=== PATIENT | female | born 1955 | race Caucasian/White ===

== ENCOUNTER 2023-03-02 14:01 | Emergency (ER) | payer MEDICARE, BC ==
[~2023-03-02] VITALS: Ht 165.1 cm; Wt 65.9 kg
[~2023-03-02 14:01] MED LIST: ATOR10TA PO; FURO20 PO; SPIR-37 PO
[2023-03-02 14:20] VITALS: TEMP 98
[2023-03-02 14:26] VITALS: BP 116/67; PULSE 92; RESP 16
[2023-03-02 15:26] LABS: BASOPHILS % (AUTO) 0.5 % (0.0-2.0); EOSINOPHILS % (AUTO) 0.3 % (1.0-6.0); HEMATOCRIT 37.6 % (36-46); HEMOGLOBIN 12.2 g/dL (12.0-16.0); LYMPHOCYTES % (AUTO) 14.9 % (22.0-44.0); MEAN CORPUSCULAR HEMOGLOBIN 31.8 pg (26.0-34.0); MEAN CORPUSCULAR HGB CONC 32.5 G/dL (31.0-37.0); MEAN CORPUSCULAR VOLUME 98 fL (80-100); MONOCYTES # (AUTO) 0.4 K/uL (0.1-1.0); MONOCYTES % (AUTO) 6.2 % (2.0-9.0); NEUTROPHILS # (AUTO) 5.1 K/uL (1.8-7.7); NEUTROPHILS % (AUTO) 78.1 % (40.0-70.0); PLATELET COUNT (AUTO) 231 K/uL (150-450); RED BLOOD CELL COUNT(AUTO) 3.84 MIL/uL (4.00-5.20); WHITE BLOOD COUNT (AUTO) 6.6 K/uL (4.5-11.0)
[2023-03-02 15:42] LABS: ALANINE AMINOTRANSFERASE 44 U/L (12-78); ALBUMIN 3.5 g/dL (3.4-5.0); ALKALINE PHOSPHATASE 60 U/L (46-116); ASPARTATE AMINOTRANSFERASE 33 U/L (15-37); CALCIUM, TOTAL 9.6 mg/dL (8.8-10.5); CARBON DIOXIDE 28 mmol/L (22-29); CREATININE 1.26 mg/dL (0.60-1.30); GLOMERULAR FILTR. RATE CALC 42 mL/min (>60); GLUCOSE,RANDOM 102 mg/dL (70-110); TOTAL PROTEIN, SERUM 6.7 g/dL (6.4-8.2); UREA NITROGEN, BLOOD 38 mg/dL (7-18)
[2023-03-02 15:43] LABS: ALCOHOL, BLOOD (SERUM) < 3 mg/dL (0-10)
[2023-03-02 15:48] LABS: ANION GAP 12 mmol/L (8-16); CHLORIDE 105 mmol/L (98-107); POTASSIUM 3.8 mmol/L (3.5-5.1); SODIUM SERUM 143 mmol/L (136-145)
== END 2023-03-02 18:06 | disposition home or self-care (01) ==
LOC: EMS 14:12
DX: F20.9 Schizophrenia, unspecified (principal); Z88.1 Allergy status to other antibiotic agents; Z91.018 Allergy to other foods; Z88.8 Allergy status to other drugs, medicaments and biological substances
CPT/HCPCS: 99284; 71045; 80053; 85025; G0480

== ENCOUNTER 2023-03-02 21:24 | Emergency (ER) | payer MEDICARE, BC ==
[~2023-03-02] VITALS: Ht 165.1 cm; Wt 65.0 kg
[2023-03-02 21:30] VITALS: BP 115/68; PULSE 90; RESP 18; TEMP 98
== END 2023-03-03 02:59 | disposition home or self-care (01) ==
LOC: EMS 21:28
DX: Z13.9 Encounter for screening, unspecified (principal); F20.9 Schizophrenia, unspecified; Z88.1 Allergy status to other antibiotic agents; Z88.8 Allergy status to other drugs, medicaments and biological substances
CPT/HCPCS: 99283; Z7502

== ENCOUNTER 2023-03-03 18:03 | Inpatient (IN) | payer BC, MEDICARE ==
[~2023-03-03] VITALS: Ht 172.7 cm; Wt 68.9 kg
[2023-03-03 18:59] LABS: BASOPHILS % (AUTO) 0.6 % (0.0-2.0); EOSINOPHILS % (AUTO) 0.3 % (1.0-6.0); HEMATOCRIT 37.3 % (36-46); HEMOGLOBIN 12.2 g/dL (12.0-16.0); LYMPHOCYTES # (AUTO) 0.8 K/uL (1.0-4.8); LYMPHOCYTES % (AUTO) 11.4 % (22.0-44.0); MEAN CORPUSCULAR HGB CONC 32.8 G/dL (31.0-37.0); MEAN CORPUSCULAR VOLUME 98 fL (80-100); MONOCYTES # (AUTO) 0.4 K/uL (0.1-1.0); NEUTROPHILS # (AUTO) 5.6 K/uL (1.8-7.7); NEUTROPHILS % (AUTO) 81.7 % (40.0-70.0); PLATELET COUNT (AUTO) 250 K/uL (150-450); RED BLOOD CELL COUNT(AUTO) 3.81 MIL/uL (4.00-5.20); RED CELL DISTRIBUTION WIDTH 16.3 % (11.5-14.5); WHITE BLOOD COUNT (AUTO) 6.8 K/uL (4.5-11.0)
[2023-03-03 19:10] LABS: ANION GAP 12 mmol/L (8-16); CARBON DIOXIDE 27 mmol/L (22-29); CHLORIDE 104 mmol/L (98-107); CREATININE 1.49 mg/dL (0.60-1.30); GLOMERULAR FILTR. RATE CALC 35 mL/min (>60); GLUCOSE,RANDOM 148 mg/dL (70-110); POTASSIUM 3.4 mmol/L (3.5-5.1); SODIUM SERUM 143 mmol/L (136-145); UREA NITROGEN, BLOOD 37 mg/dL (7-18)
[2023-03-03 19:16] LABS: ALANINE AMINOTRANSFERASE 46 U/L (12-78); ALBUMIN 3.6 g/dL (3.4-5.0); ALKALINE PHOSPHATASE 60 U/L (46-116); ASPARTATE AMINOTRANSFERASE 29 U/L (15-37); TOTAL PROTEIN, SERUM 6.8 g/dL (6.4-8.2)
[2023-03-03 19:19] LABS: ALCOHOL, BLOOD (SERUM) < 3 mg/dL (0-10)
[2023-03-03 19:43] LABS: COVID AG,FIA SOURCE NASAL SWAB
[2023-03-03 19:48] LABS: SARS-COV2 (COVID) ANTIGEN,FIA Negative (Negative)
[2023-03-03] MEDS ORDERED: HALOPERIDOL 5 MG TABLET PO PRN (21:45)
[2023-03-03] MEDS ORDERED: ZOLPIDEM TARTRATE 10 MG TABLET PO PRN (21:45)
[2023-03-03] MEDS ORDERED: LORazepam 2 MG TABLET PO PRN (21:45)
[2023-03-04] MEDS ORDERED: FUROSEMIDE 20 MG TABLET PO ONE (07:30)
[2023-03-04] MEDS ORDERED: SPIRONOLACTONE 25 MG TABLET PO ONE (07:30)
[2023-03-04 07:49] LABS: BASOPHILS % (AUTO) 0.5 % (0.0-2.0); EOSINOPHILS % (AUTO) 0.7 % (1.0-6.0); HEMATOCRIT 36.3 % (36-46); LYMPHOCYTES % (AUTO) 18.8 % (22.0-44.0); MEAN CORPUSCULAR HEMOGLOBIN 32.1 pg (26.0-34.0); MEAN CORPUSCULAR VOLUME 97 fL (80-100); MONOCYTES # (AUTO) 0.3 K/uL (0.1-1.0); NEUTROPHILS # (AUTO) 3.8 K/uL (1.8-7.7); PLATELET COUNT (AUTO) 225 K/uL (150-450); RED BLOOD CELL COUNT(AUTO) 3.72 MIL/uL (4.00-5.20); RED CELL DISTRIBUTION WIDTH 16.4 % (11.5-14.5); WHITE BLOOD COUNT (AUTO) 5.2 K/uL (4.5-11.0)
[2023-03-04 07:59] LABS: CALCIUM, TOTAL 9.5 mg/dL (8.8-10.5); CREATININE 1.22 mg/dL (0.60-1.30); POTASSIUM 3.7 mmol/L (3.5-5.1)
[2023-03-04 08:09] LABS: TROPONIN I-HIGH SENSITIVITY 54 ng/L (<51)
[2023-03-04 10:40] LABS: TROPONIN I-HIGH SENSITIVITY 39 ng/L (<51)
[2023-03-04 11:03] LABS: ALCOHOL, URINE DRUG SCREEN NEGATIVE (NEGATIVE); AMPHET/METH SCREEN,URINE NEGATIVE (NEGATIVE); BARBITURATE SCREEN, URINE NEGATIVE (NEGATIVE); BENZODIAZEPINES SCREEN,URINE NEGATIVE (NEGATIVE); CANNABINOID SCREEN,URINE NEGATIVE (NEGATIVE); COCAINE SCREEN,URINE NEGATIVE (NEGATIVE); METHADONE SCREEN, URINE NEGATIVE (NEGATIVE); OPIATE SCREEN,URINE NEGATIVE (NEGATIVE); PHENCYCLIDINE SCREEN,URINE NEGATIVE (NEGATIVE)
[2023-03-04 11:05] LABS: APPEARANCE,URINE CLEAR (CLEAR); BILIRUBIN,URINE NEGATIVE (NEGATIVE); COLOR,URINE YELLOW (YELLOW); GLUCOSE, URINE (UA) NEGATIVE (NEGATIVE); KETONES,URINE NEGATIVE (NEGATIVE); LEUKOCYTE ESTERASE ,URINE NEGATIVE (NEGATIVE); NITRATE,URINE NEGATIVE (NEGATIVE); OCCULT BLOOD,URINE NEGATIVE (NEGATIVE); PH,URINE 5.5 (5.0-8.0); PH,URINE DRUG SCREEN 5.5 (5.0-8.0); PROTEIN,URINE 30-70 mg/dL (NEGATIVE); SPECIFIC GRAVITIY, URINE 1.024 (1.003-1.030)
[2023-03-04] MEDS ORDERED: ZOLPIDEM TARTRATE 10 MG TABLET PO PRN (11:15)
[2023-03-04] MEDS ORDERED: LORazepam 2 MG TABLET PO PRN (11:15)
[2023-03-04] MEDS ORDERED: HALOPERIDOL 5 MG TABLET PO PRN (11:15)
[2023-03-04 17:51] VITALS: BP 135/91; PULSE 91; RESP 18; TEMP 97; O2SAT 97
[2023-03-04 18:13] VITALS: BP 135/91; PULSE 91; RESP 18; TEMP 97
[2023-03-04 22:34] VITALS: BP 126/77; PULSE 84; RESP 18; TEMP 97.3
[2023-03-05] MEDS ORDERED: BENZOCAINE/MENTHOL LOZENGE PO PRN (05:30)
[2023-03-05] MEDS ORDERED: ALBUTEROL SULFATE HFA 90 MCG/PUFF 8 GM INHALER IH PRN (05:30)
[2023-03-05] MEDS ORDERED: IBUPROFEN 600 MG TABLET PO PRN (05:30)
[2023-03-05] MEDS ORDERED: PETROLATUM,WHITE 28 GM JELLY TP PRN (05:30)
[2023-03-05] MEDS ORDERED: CloNIDine HCL 0.1 MG TABLET PO PRN (05:30)
[2023-03-05] MEDS ORDERED: MAGNESIUM HYDROXIDE SUSPENSION 30 ML UDCUP PO PRN (05:30)
[2023-03-05] MEDS ORDERED: BACITRACIN 28 GM OINTMENT TP PRN (05:30)
[2023-03-05] MEDS ORDERED: DOCUSATE SODIUM 100 MG CAPSULE PO PRN (05:30)
[2023-03-05] MEDS ORDERED: OMEPRAZOLE 20 MG CAPSULE PO PRN (05:30)
[2023-03-05] MEDS ORDERED: ACETAMINOPHEN 325 MG TABLET PO PRN (05:30)
[2023-03-05] MEDS ORDERED: ONDANSETRON HCL 4 MG TABLET PO PRN (05:30)
[2023-03-05] MEDS ORDERED: MAG HYDROX/ALUMINUM HYD/SIMETH ES 30 ML SUSPENSION UDCUP PO PRN (05:30)
[2023-03-05] MEDS ORDERED: LOPERAMIDE HCL 2 MG CAPSULE PO PRN (05:30)
[2023-03-05] MEDS: SPIRONOLACTONE 25 MG TABLET PO SCH ×2 (08:27→17:00)
[2023-03-05] MEDS: FUROSEMIDE 40 MG TABLET PO SCH (08:27)
[2023-03-05] MEDS: METOPROLOL TARTRATE 25 MG TABLET PO SCH ×2 (08:27→17:00)
[2023-03-05] MEDS: ASPIRIN 81 MG DR TABLET PO SCH (08:28)
[2023-03-05 09:00] VITALS: BP 93/61; PULSE 92; RESP 18; TEMP 96.8
[2023-03-05 12:00] VITALS: BP 103/56; PULSE 116; RESP 18
[2023-03-05] MEDS: MEMANTINE HCL 5 MG TABLET PO SCH (17:00)
[2023-03-05] MEDS: OLANZapine 5 MG TABLET PO SCH (21:00)
[2023-03-05] MEDS: ATORVASTATIN CALCIUM 20 MG TABLET PO SCH (21:00)
[2023-03-05 22:34] VITALS: RESP 18; TEMP 96.8
[2023-03-06 08:38] LABS: BASOPHILS % (AUTO) 0.3 % (0.0-2.0); EOSINOPHILS % (AUTO) 0.2 % (1.0-6.0); HEMATOCRIT 36.5 % (36-46); LYMPHOCYTES % (AUTO) 13.1 % (22.0-44.0); MEAN CORPUSCULAR HEMOGLOBIN 32.1 pg (26.0-34.0); MEAN CORPUSCULAR HGB CONC 32.9 G/dL (31.0-37.0); MEAN CORPUSCULAR VOLUME 98 fL (80-100); MONOCYTES # (AUTO) 0.6 K/uL (0.1-1.0); MONOCYTES % (AUTO) 7.1 % (2.0-9.0); NEUTROPHILS # (AUTO) 6.3 K/uL (1.8-7.7); NEUTROPHILS % (AUTO) 79.3 % (40.0-70.0); PLATELET COUNT (AUTO) 199 K/uL (150-450); RED BLOOD CELL COUNT(AUTO) 3.75 MIL/uL (4.00-5.20); RED CELL DISTRIBUTION WIDTH 16.2 % (11.5-14.5); WHITE BLOOD COUNT (AUTO) 7.9 K/uL (4.5-11.0)
[2023-03-06 08:49] LABS: HEMOGLOBIN A1C 5.9 % (3.8-5.6)
[2023-03-06] MEDS: MEMANTINE HCL 5 MG TABLET PO SCH ×2 (09:00→18:16)
[2023-03-06] MEDS: ASPIRIN 81 MG DR TABLET PO SCH (09:00)
[2023-03-06] MEDS: METOPROLOL TARTRATE 25 MG TABLET PO SCH ×2 (09:00→17:00)
[2023-03-06] MEDS: FUROSEMIDE 40 MG TABLET PO SCH (09:00)
[2023-03-06] MEDS: SPIRONOLACTONE 25 MG TABLET PO SCH ×2 (09:00→17:00)
[2023-03-06 09:53] LABS: ALBUMIN 3.1 g/dL (3.4-5.0); BILIRUBIN,TOTAL 0.9 mg/dL (0.1-1.0); CALCIUM, TOTAL 9.3 mg/dL (8.8-10.5); CHOL/HDL RATIO 3.1 (3.9-5.7); CREATININE 1.31 mg/dL (0.60-1.30); PHOSPHORUS 4.9 mg/dL (2.5-4.9); POTASSIUM 4.2 mmol/L (3.5-5.1); THYROID STIMULATING HORMONE 9.63 uIU/mL (0.36-3.74)
[2023-03-06 12:03] VITALS: BP 118/67; PULSE 101; RESP 18
[2023-03-06 16:19] VITALS: BP 104/71; PULSE 72; RESP 18
[2023-03-06] MEDS: ATORVASTATIN CALCIUM 20 MG TABLET PO SCH (21:00)
[2023-03-06] MEDS: OLANZapine 5 MG TABLET PO SCH (21:00)
[2023-03-06 22:34] VITALS: BP 115/70; PULSE 70; RESP 18; TEMP 96.7
[2023-03-07] MEDS: MEMANTINE HCL 5 MG TABLET PO SCH ×3 (09:00→17:20)
[2023-03-07] MEDS: ASPIRIN 81 MG DR TABLET PO SCH (09:00)
[2023-03-07] MEDS: SPIRONOLACTONE 25 MG TABLET PO SCH ×3 (09:00→17:20)
[2023-03-07] MEDS: FUROSEMIDE 40 MG TABLET PO SCH (09:00)
[2023-03-07] MEDS: METOPROLOL TARTRATE 25 MG TABLET PO SCH ×3 (09:00→17:19)
[2023-03-07 09:31] VITALS: BP 112/67; PULSE 60; RESP 18; TEMP 97
[2023-03-07] MEDS: ATORVASTATIN CALCIUM 20 MG TABLET PO SCH (21:00)
[2023-03-07] MEDS: OLANZapine 5 MG TABLET PO SCH (21:00)
[2023-03-07 21:10] VITALS: BP 117/81; PULSE 87; RESP 17; TEMP 97.2
[2023-03-08 08:34] VITALS: BP 127/87; PULSE 76; RESP 18; TEMP 97.4
[2023-03-08] MEDS: SPIRONOLACTONE 25 MG TABLET PO SCH ×2 (09:00→16:19)
[2023-03-08] MEDS: ASPIRIN 81 MG DR TABLET PO SCH (09:00)
[2023-03-08] MEDS: METOPROLOL TARTRATE 25 MG TABLET PO SCH ×2 (09:00→16:19)
[2023-03-08] MEDS: MEMANTINE HCL 5 MG TABLET PO SCH ×2 (09:00→16:19)
[2023-03-08] MEDS: FUROSEMIDE 40 MG TABLET PO SCH (09:00)
[2023-03-08 20:33] VITALS: BP 122/63; PULSE 82; RESP 18; TEMP 97.4
[2023-03-08] MEDS: ATORVASTATIN CALCIUM 20 MG TABLET PO SCH (21:00)
[2023-03-08] MEDS: OLANZapine 5 MG TABLET PO SCH (21:00)
[2023-03-09] MEDS: MEMANTINE HCL 5 MG TABLET PO SCH ×2 (09:00→17:00)
[2023-03-09] MEDS: FUROSEMIDE 40 MG TABLET PO SCH (09:00)
[2023-03-09] MEDS: ASPIRIN 81 MG DR TABLET PO SCH (09:00)
[2023-03-09] MEDS: METOPROLOL TARTRATE 25 MG TABLET PO SCH ×2 (09:00→17:00)
[2023-03-09] MEDS: SPIRONOLACTONE 25 MG TABLET PO SCH ×2 (09:00→17:00)
[2023-03-09 09:35] VITALS: BP 125/43; PULSE 86; RESP 18; TEMP 96.8
[2023-03-09] MEDS ORDERED: GuaiFENesin/D-METHORPHAN [SUGAR-FREE] 200-20MG/10 ML SYRUP UDCUP PO PRN (16:00)
[2023-03-09] MEDS: OLANZapine 5 MG TABLET PO SCH (21:00)
[2023-03-09] MEDS: ATORVASTATIN CALCIUM 20 MG TABLET PO SCH (21:00)
[2023-03-09 21:29] VITALS: BP 98/60; PULSE 91; RESP 18; TEMP 98.1
[2023-03-10] MEDS: MEMANTINE HCL 5 MG TABLET PO SCH ×2 (09:00→17:00)
[2023-03-10] MEDS: METOPROLOL TARTRATE 25 MG TABLET PO SCH ×2 (09:00→17:00)
[2023-03-10] MEDS: FUROSEMIDE 40 MG TABLET PO SCH (09:00)
[2023-03-10] MEDS: ASPIRIN 81 MG DR TABLET PO SCH (09:00)
[2023-03-10] MEDS: SPIRONOLACTONE 25 MG TABLET PO SCH ×2 (09:00→17:00)
[2023-03-10 11:38] VITALS: BP 102/44; PULSE 88; RESP 18; TEMP 96.7
[2023-03-10 20:40] VITALS: BP 99/63; PULSE 93; RESP 18; TEMP 97.4
[2023-03-10] MEDS: OLANZapine 5 MG TABLET PO SCH (20:44)
[2023-03-10] MEDS: ATORVASTATIN CALCIUM 20 MG TABLET PO SCH (20:44)
[2023-03-11] MEDS: METOPROLOL TARTRATE 25 MG TABLET PO SCH ×2 (09:00→17:00)
[2023-03-11] MEDS: MEMANTINE HCL 5 MG TABLET PO SCH ×2 (09:00→17:00)
[2023-03-11] MEDS: ASPIRIN 81 MG DR TABLET PO SCH (09:00)
[2023-03-11] MEDS: SPIRONOLACTONE 25 MG TABLET PO SCH ×2 (09:00→17:00)
[2023-03-11] MEDS: FUROSEMIDE 40 MG TABLET PO SCH (09:00)
[2023-03-11 10:43] VITALS: BP 137/67; PULSE 99; RESP 20; TEMP 93.7
[2023-03-11] MEDS: ATORVASTATIN CALCIUM 20 MG TABLET PO SCH (21:22)
[2023-03-11] MEDS: OLANZapine 5 MG TABLET PO SCH (21:22)
[2023-03-11 21:33] VITALS: BP 143/79; PULSE 89; RESP 17; TEMP 97.3
[2023-03-12 07:46] LABS: BASOPHILS % (AUTO) 0.6 % (0.0-2.0); EOSINOPHILS % (AUTO) 0 % (1.0-6.0); HEMATOCRIT 37.5 % (36-46); HEMOGLOBIN 12.5 g/dL (12.0-16.0); LYMPHOCYTES # (AUTO) 0.7 K/uL (1.0-4.8); LYMPHOCYTES % (AUTO) 7.5 % (22.0-44.0); MEAN CORPUSCULAR HEMOGLOBIN 31.9 pg (26.0-34.0); MEAN CORPUSCULAR HGB CONC 33.2 G/dL (31.0-37.0); MEAN CORPUSCULAR VOLUME 96 fL (80-100); MONOCYTES # (AUTO) 0.7 K/uL (0.1-1.0); MONOCYTES % (AUTO) 7.5 % (2.0-9.0); NEUTROPHILS # (AUTO) 7.4 K/uL (1.8-7.7); NEUTROPHILS % (AUTO) 84.4 % (40.0-70.0); PLATELET COUNT (AUTO) 185 K/uL (150-450); RED BLOOD CELL COUNT(AUTO) 3.91 MIL/uL (4.00-5.20); RED CELL DISTRIBUTION WIDTH 15.7 % (11.5-14.5); WHITE BLOOD COUNT (AUTO) 8.8 K/uL (4.5-11.0)
[2023-03-12 08:04] LABS: CALCIUM, TOTAL 9.4 mg/dL (8.8-10.5); CREATININE 1.33 mg/dL (0.60-1.30); POTASSIUM 4.6 mmol/L (3.5-5.1)
[2023-03-12 08:09] LABS: ALBUMIN 3.5 g/dL (3.4-5.0); BILIRUBIN,TOTAL 1.4 mg/dL (0.1-1.0); PHOSPHORUS 3.8 mg/dL (2.5-4.9); TOTAL PROTEIN, SERUM 6.8 g/dL (6.4-8.2)
[2023-03-12] MEDS: SPIRONOLACTONE 25 MG TABLET PO SCH (08:36)
[2023-03-12] MEDS: MEMANTINE HCL 5 MG TABLET PO SCH (08:37)
[2023-03-12] MEDS: ASPIRIN 81 MG DR TABLET PO SCH (08:37)
[2023-03-12] MEDS: FUROSEMIDE 40 MG TABLET PO SCH (08:37)
[2023-03-12] MEDS: METOPROLOL TARTRATE 25 MG TABLET PO SCH (09:00)
== END 2023-03-12 15:15 | disposition short-term general hospital (02) | DRG 885 ==
LOC: EMS 18:04 → 3EX 03-04 15:27
PROVIDERS: ADMIT Psychiatry & Neurology Psychiatry; ATTEND Psychiatry & Neurology Psychiatry
DX: F20.9 Schizophrenia, unspecified (principal); N18.9 Chronic kidney disease, unspecified; I13.0 Hypertensive heart and chronic kidney disease with heart failure and stage 1 through stage 4 chronic kidney disease, or unspecified chronic kidney disease; I42.0 Dilated cardiomyopathy; Z59.00 Homelessness unspecified; I50.9 Heart failure, unspecified; E87.6 Hypokalemia; M19.90 Unspecified osteoarthritis, unspecified site; K59.00 Constipation, unspecified; Z20.822 Contact with and (suspected) exposure to COVID-19; K21.9 Gastro-esophageal reflux disease without esophagitis; G47.00 Insomnia, unspecified; F41.9 Anxiety disorder, unspecified; F03.90 Unspecified dementia, unspecified severity, without behavioral disturbance, psychotic disturbance, mood disturbance, and anxiety; F32.A Depression, unspecified; Z88.1 Allergy status to other antibiotic agents; Z91.09 Other allergy status, other than to drugs and biological substances
CPT/HCPCS: 71046; 80048; 80053; 80061; 80307; 81003; 82140; 83036; 83735; 83880; 84100; 84443; 84484; 85025; 93005; 99285; G0378; G0480; J3535; 36415-L1; 36415-TC

== ENCOUNTER 2023-03-12 13:20 | Inpatient (IN) | payer MEDICARE ==
[~2023-03-12] VITALS: Ht 172.7 cm; Wt 66.1 kg
[2023-03-12 15:33] VITALS: BP 108/81; PULSE 108; RESP 18; TEMP 98.6
[2023-03-12] MEDS ORDERED: IPRATROPIUM BROMIDE 0.5 MG/2.5 ML NEB SOLUTION NEB PRN (16:15)
[2023-03-12] MEDS ORDERED: NITROGLYCERIN 0.4 MG SUBLINGUAL TABLET #25 SL PRN (16:15)
[2023-03-12] MEDS ORDERED: ACETAMINOPHEN 325 MG TABLET PO PRN (16:15)
[2023-03-12] MEDS ORDERED: ALBUTEROL SULFATE 2.5 MG/0.5 ML NEB SOLUTION NEB PRN (16:15)
[2023-03-12] MEDS: FUROSEMIDE 40 MG/4 ML VIAL IVP SCH ×2 (16:30→20:46)
[2023-03-12] MEDS: EMPAGLIFLOZIN 25 MG TABLET PO SCH (18:29)
[2023-03-12] MEDS ORDERED: INFLUENZA VIRUS VACCINE QVS 2023-24 (6MO+)/PF 60 MCG/0.5 ML SYRINGE IM. ONE (19:15)
[2023-03-12 20:27] VITALS: BP 121/69; PULSE 107; RESP 18; TEMP 97.6
[2023-03-12] MEDS: SPIRONOLACTONE 25 MG TABLET PO SCH (20:45)
[2023-03-12] MEDS: HEPARIN SODIUM,PORCINE 5,000 UNITS/ML VIAL SQ SCH ×2 (20:46→21:00)
[2023-03-12] MEDS ORDERED: ATORVASTATIN CALCIUM 40 MG TABLET PO SCH (21:00)
[2023-03-12] MEDS ORDERED: OLANZapine 5 MG TABLET PO SCH (21:00)
[2023-03-12] MEDS: METOPROLOL TARTRATE 25 MG TABLET PO SCH (21:00)
[2023-03-13] VITALS (10 sets, daily range): BP systolic 101–140; BP diastolic 59–108; PULSE 72–99; RESP 18–20; TEMP 97.7–98.2; O2SAT 91–93
[2023-03-13 06:25] LABS: BASOPHILS % (AUTO) 0.5 % (0.0-2.0); EOSINOPHILS % (AUTO) 0 % (1.0-6.0); HEMATOCRIT 34.9 % (36-46); HEMOGLOBIN 11.5 g/dL (12.0-16.0); LYMPHOCYTES % (AUTO) 13.2 % (22.0-44.0); MEAN CORPUSCULAR HEMOGLOBIN 31.7 pg (26.0-34.0); MEAN CORPUSCULAR VOLUME 96 fL (80-100); MONOCYTES # (AUTO) 0.6 K/uL (0.1-1.0); MONOCYTES % (AUTO) 8.1 % (2.0-9.0); NEUTROPHILS # (AUTO) 5.9 K/uL (1.8-7.7); NEUTROPHILS % (AUTO) 78.2 % (40.0-70.0); PLATELET COUNT (AUTO) 159 K/uL (150-450); RED BLOOD CELL COUNT(AUTO) 3.63 MIL/uL (4.00-5.20); RED CELL DISTRIBUTION WIDTH 15.7 % (11.5-14.5); WHITE BLOOD COUNT (AUTO) 7.6 K/uL (4.5-11.0)
[2023-03-13] MEDS ORDERED: LEVOTHYROXINE SODIUM 50 MCG TABLET PO SCH (06:30)
[2023-03-13 07:05] LABS: ALBUMIN 2.9 g/dL (3.4-5.0); BILIRUBIN,TOTAL 1.3 mg/dL (0.1-1.0); CALCIUM, TOTAL 8.6 mg/dL (8.8-10.5); CREATININE 1.34 mg/dL (0.60-1.30); PHOSPHORUS 3.9 mg/dL (2.5-4.9); POTASSIUM 4.3 mmol/L (3.5-5.1); TOTAL PROTEIN, SERUM 5.7 g/dL (6.4-8.2)
[2023-03-13] MEDS ORDERED: MEMANTINE HCL 5 MG TABLET PO SCH (09:00)
[2023-03-13] MEDS ORDERED: ASPIRIN 81 MG CHEWABLE TABLET PO SCH (09:00)
[2023-03-13] MEDS ORDERED: PANTOPRAZOLE SODIUM 40 MG DR TABLET PO SCH (09:00)
[2023-03-13] MEDS: SPIRONOLACTONE 25 MG TABLET PO SCH (09:48)
[2023-03-13] MEDS: EMPAGLIFLOZIN 25 MG TABLET PO SCH (09:49)
[2023-03-13] MEDS: FUROSEMIDE 40 MG/4 ML VIAL IVP SCH (09:49)
[2023-03-13] MEDS: HEPARIN SODIUM,PORCINE 5,000 UNITS/ML VIAL SQ SCH (09:50)
[2023-03-13] MEDS: METOPROLOL TARTRATE 25 MG TABLET PO SCH (12:30)
[2023-03-13] MEDS ORDERED: HALOPERIDOL 5 MG TABLET PO PRN (16:00)
[2023-03-14 00:46] LABS: GLUCOMETER DEV NAME(LOC) 5N.2C; GLUCOSE,POINT OF CARE 151 MG/DL (70-110)
[2023-03-14] MEDS ORDERED: LOSARTAN POTASSIUM 25 MG TABLET PO SCH (09:00)
== END 2023-03-13 20:42 | disposition short-term general hospital (02) | DRG 291 ==
LOC: 5S 13:20
PROVIDERS: ADMIT Internal Medicine; ATTEND Internal Medicine
PROC: 05H933Z Insertion of Infusion Device into Right Brachial Vein, Percutaneous Approach (ICD-10-PCS; principal; 2023-03-12)
DX: I13.0 Hypertensive heart and chronic kidney disease with heart failure and stage 1 through stage 4 chronic kidney disease, or unspecified chronic kidney disease (principal); I50.23 Acute on chronic systolic (congestive) heart failure; N17.9 Acute kidney failure, unspecified; E78.5 Hyperlipidemia, unspecified; F20.9 Schizophrenia, unspecified; F03.90 Unspecified dementia, unspecified severity, without behavioral disturbance, psychotic disturbance, mood disturbance, and anxiety; E03.9 Hypothyroidism, unspecified; N18.9 Chronic kidney disease, unspecified; M19.90 Unspecified osteoarthritis, unspecified site; Z88.1 Allergy status to other antibiotic agents; Z87.891 Personal history of nicotine dependence; Z91.048 Other nonmedicinal substance allergy status; Z91.09 Other allergy status, other than to drugs and biological substances; Z91.199 Patient's noncompliance with other medical treatment and regimen due to unspecified reason
CPT/HCPCS: 36245; 36569; 76937; 80053; 82962; 83735; 84100; 85025; 94640; 97167; 97535; J1644; J1940; Q9967